=== PATIENT | male | born 1945 | race Caucasian/White ===

== ENCOUNTER 2017-12-26 12:13 | Emergency (ER) | payer OTHER, SELFPAY ==
[2017-12-26 12:15] VITALS: BP 171/65; PULSE 67; RESP 17; TEMP 36.7; O2SAT 100
[2017-12-26 12:21] VITALS: BP 171/65; PULSE 67; RESP 17; TEMP 36.7; O2SAT 100
--- NOTE | 2017-12-26 12:37 | DI.CT.S_ITS ---
PROCEDURE: CT HEAD/BRAIN WO CON INDICATIONS: dysarthria TECHNIQUE: Noncontrast 4.5 mm thick angled axial sections acquired from the foramen magnum to the vertex, with coronal and sagittal reformats. For radiation dose reduction, the following was used: automated exposure control, adjustment of mA and/or kV according to patient size. COMPARISON: [facility], MR, STROKE PROTOCOL, 06/28/2016, 13:38. [facility], CT, HEAD AND NECK ANGIO, 06/27/2016, 20:17. [facility], CT, HEAD WITHOUT CONTRAST, 06/27/2016, 19:45. FINDINGS: Image quality: Excellent. CSF spaces: Basal cisterns are patent. No extra-axial fluid collections. The ventricles are moderately dilated but symmetric in size and shape. Ventricular dilation is unchanged. Brain: No intracranial bleeds or masses. There is cerebral volume loss for age, with resultant ventricular and sulcal prominence. There are periventricular and deep white matter chronic small vessel ischemic changes. There is intracranial internal carotid artery atherosclerosis. Skull and face: Calvarium and visualized facial bones appear intact, without suspicious lesions. Sinuses: Visualized sinuses and mastoids are clear. IMPRESSION: 1. No acute intracranial abnormalities. 2. Cerebral volume loss and chronic microvascular ischemic changes. 3. Dilated cerebral ventricles may be secondary to central atrophy or normal pressure hydrocephalus. Recommend clinical correlation. Dictated by: Sudha Moreland M.D. on 12/26/2017 at 12:57 Approved by: Sudha Moreland M.D. on 12/26/2017 at 13:06
--- NOTE | 2017-12-26 12:39 | ED.NEUROSD ---
HPI - Neuro Symptoms/Deficit General Chief Complaint: Neuro Symptoms/Deficit Stated Complaint: THINKS HE IS HAVING A STROKE Time Seen by Provider: 12/26/17 12:19 Source: patient and family Mode of arrival: ambulatory Limitations: no limitations History of Present Illness HPI Narrative: Patient states that he was riding in the car when he began to feel a little bit lightheaded. He states when he got out of the car, he noticed that he was having trouble pronouncing words and that his right leg felt slightly weak. However, patient did not have any trouble walking. Son states that patient was mixing up some of his bowels incontinence. Patient states the symptoms lasted about 30 min and then began to katherine. He states that now, and he is feeling mostly better. Patient has a history of TIAs in the past and states this feels similar. His last 1 was in June of 2016, and he does not recall having a carotid Doppler or echocardiogram at that time. He does think that he has had a carotid Doppler some point in the past. Onset (ago): hour(s) (2) Last Observed Normal: 10:15 Timing confirmed by: family member Location: speech and right leg History of same: Yes Severity: mild Quality: weak and improving Relieving factors: time Exacerbating factors: none Context: sudden onset On Anticoagulants: Yes (aspirin) Associated symptoms: other (Patient states he has been dealing with a lot of anxiety, secondary to his 's being in the ICU with sepsis. Patient also states that he feels as though he has a migraine headache, as well.) Treatments Prior to Arrival: Aspirin Related Data Previous Rx's Medication Instructions Recorded cyclobenzaprine 10 mg PO Q8HP PRN #20 tab 05/01/16 hydrocodone-acetaminophen [Arnold] 1 - 2 tab PO Q6H PRN #15 tab 05/01/16 ondansetron [Zofran ODT] 4 mg SUBLINGUAL Q6HP PRN #20 odt 06/03/16 aspirin 325 mg PO QDAY #30 06/28/16 Allergies Allergy/AdvReac Type Severity Reaction Status Date / Time No Known Drug Allergies Allergy Unknown Unverified 08/29/17 12:30 oxycodone AdvReac Intermediate CONFUSION Unverified 08/29/17 12:30 Review of Systems Review of Systems All systems reviewed & are unremarkable except as noted in HPI and below Constitutional Denies chills, Denies fever(s), Denies lethargy and Reports weakness (R leg) Eyes Denies change in vision, Denies eye discharge, Denies irritation and Denies loss of vision ENT Ears, Nose, Mouth, and Throat: Denies change in voice, Denies neck pain and Denies sore throat Cardiovascular Denies chest pain, Denies irregular heart rhythm, Denies lightheadedness, Denies palpitations, Denies dyspnea, Denies dyspnea on exertion and Denies orthopnea Respiratory Denies cough, Denies dyspnea, Denies dyspnea on exertion and Denies wheezing Gastrointestinal Gastrointestinal: Denies abdominal pain, Denies change in bowel habits, Denies diarrhea, Denies nausea and Denies vomiting Genitourinary Denies hematuria, Denies flank pain, Denies urinary incontinence and Denies urinary urgency Musculoskeletal Denies neck pain Integumentary/Breasts Denies pruritus, Denies erythema, Denies rash and Denies wounds Neurologic Reports abnormal speech, Denies confusion, Denies loss of vision and Reports weakness (R leg) Psychiatric Denies anxiety, Denies confusion, Denies depression, Denies homicidal ideation and Denies suicidal ideation Endocrine Denies palpitations Hematologic/Lymphatic Denies easy bruising Allergic/Immunologic Denies wheezing Exam Initial Vital Signs Initial Vital Signs: Vital Signs Temperature 98.1 F 12/26/17 12:15 Pulse Rate 67 12/26/17 12:15 Respiratory Rate 17 12/26/17 12:15 Blood Pressure 171/65 H 12/26/17 12:15 Pulse Oximetry 100 12/26/17 12:15 Const General: cooperative and well developed Nutritional Appearance: well nourished Orientation: alert, awake, oriented x3 and not confused [facility] Head: normocephalic and atraumatic Ears: external ears normal and TM's normal bilaterally Nose: external nose normal and No nasal discharge Face and sinus: sinuses nontender, face symmetric, no sinus tenderness and No dry mucous membranes Mouth: oral mucosae normal and moist mucous membranes Teeth and gingiva: dentition normal Throat: tonsils normal and uvula midline Eyes General: appearance normal, both eyes and all related structures Eyelids: eyelids normal Conjunctivae: conjunctivae normal Sclera: sclerae normal Pupils: PERRL EOM: EOM intact bilaterally Neck Neck: normal visual inspection, trachea midline, No lymphadenopathy, No midline deformity and No JVD Lymphatic: No lymphedema Chest Chest: normal inspection of the chest Resp Effort & Inspection: normal respiratory effort, able to speak in complete sentences, no respiratory distress and no use of accessory muscles Auscultation: clear to auscultation bilaterally, no rales, no rhonchi and no wheezes Cardio Rate: regular rate Rhythm: regular rhythm Heart Sounds: no click, no gallops, no murmurs and no rubs Pulses: normal peripheral pulses GI Inspection: non-distended Palpation: soft, no hepatosplenomegaly, No guarding, No pulsatile mass and No tender Auscultation: normal bowel sounds Back/Spine/Pelvis Back: No CVA tenderness Cervical Spine: cervical ROM normal and No pain with cervical ROM Thoracic/Lumbar Spine: thoracic and lumbar spine normal to inspection Skin General: no rashes or lesions noted, No jaundice and No petechiae Neuro General: alert, oriented x3, gait normal, moves all extremities, normal light touch, pain and propioception, no focal motor deficits and CN's II-XI intact bilaterally Cognition: normal cognition Speech: speech normal Gait: normal gait Motor: muscle tone normal throughout and strength 5/5 throughout Sensory Exam: no sensory deficits noted Pupils: Normal pupillary reactivity/response: right and left Extrem General: full ROM, no clubbing, cyanosis or edema, no pedal edema and no calf tenderness Psych Appearance: well kempt Mental Status: mental status grossly normal Attitude: cooperative Thought Content: normal and suicidality Judgment: judgment good Course Hospital Course: Twelve lead EKG was performed and showed the following: Normal sinus rhythm with ventricular rate 67 beats per minute ME interval 198 milliseconds QRS duration 77 millisecond QT interval normal Aubrey normal Orders Ordered: Discontinued Medications Sodium Chloride (Normal Saline 0.9%) 1,000 mls @ 150 mls/hr IV CONT NANETTE Last Infusion: 12/26/17 14:35 Dose: 0 mls/hr Admin: 12/26/17 13:13 Dose: 150 mls/hr Vital Signs - 8 hr 12/26/17 12:15 12/26/17 12:21 12/26/17 13:11 Temperature 98.1 F 98.1 F Pulse Rate 67 67 63 Respiratory Rate 17 17 21 Blood Pressure 171/65 H Blood Pressure [Right Arm] 171/65 H 118/64 Pulse Oximetry 100 100 99 MDM - Neuro Symptoms/Deficit Lab Data Result diagrams: 12/26/17 12:20 12/26/17 12:20 Lab Results 12/26/17 12/26/17 12/26/17 Range/Units 12:20 12:20 12:20 WBC 7.0 (4.5-11.0) X10^3/uL RBC 4.43 L (4.5-5.9) X10^6/uL Hgb 12.7 L (13.5-17.5) g/dL Hct 37.2 L (41-53) % MCV 84.0 (80-100) fL MCH 28.8 (26-34) PG MCHC 34.3 (30-36) % RDW 14.2 (11.6-14.8) % Plt Count 237 (150-400) X10^3/uL Neut % (Auto) 60.1 (50-75) % Lymph % (Auto) 26.8 (25-40) % [place] % (Auto) 9.3 (3-14) % Eos % (Auto) 3.1 (2-4) % Baso % (Auto) 0.7 (0-2) % Neut # (Auto) 4200 (2529-4610) /uL Total Counted Cancelled Seg Neutrophils % Cancelled Band Neutrophils % Cancelled Lymphocytes % (Manual) Cancelled Atypical Lymphs % Cancelled Monocytes % (Manual) Cancelled Eosinophils % (Manual) Cancelled Basophils % (Manual) Cancelled Metamyelocytes % Cancelled Myelocytes % Cancelled Promyelocytes % Cancelled Blast Cells % Cancelled Neutrophils # (Manual) Cancelled Nucleated RBCs Cancelled Differential Comment Cancelled Hypersegmented Neuts Cancelled Reactive Lymphocytes Cancelled Plasma Cells Cancelled Smudge Cells Cancelled Other Cell Type Cancelled Toxic Granulation Cancelled Toxic Vacuolation Cancelled Dohle Bodies Cancelled Annie Rods Cancelled WBC Morphology Comment Cancelled Platelet Estimate Cancelled Clumped Platelets Cancelled Plt Morphology Comment Cancelled RBC Morphology Cancelled Dimorphic RBCs Cancelled Polychromasia Cancelled Hypochromasia Cancelled Poikilocytosis Cancelled Basophilic Stippling Cancelled Anisocytosis Cancelled Microcytosis Cancelled Macrocytosis Cancelled Spherocytes Cancelled Pappenheimer Bodies Cancelled Sickle Cells Cancelled Target Cells Cancelled Tear Drop Cells Cancelled Ovalocytes Cancelled Stomatocytes Cancelled Helmet Cells Cancelled Padron-[place] Bodies Cancelled [place] Rings Cancelled [place] Cells Cancelled Acanthocytes (Spur) Cancelled Rouleaux Cancelled Schistocytes Cancelled PT 10.8 (10.1-12.7) SECONDS INR 1.0 (0.9-1.3) APTT 32 (26.4-36.2) SECONDS Sodium 136 L (137-145) mmol/L Potassium 4.3 (3.4-5.1) mmol/L Chloride 99 (98-107) mmol/L Carbon Dioxide 24 (22-32) mmol/L BUN 17 (9-20) mg/dL Creatinine 0.90 (0.66-1.25) mg/dL Estimated GFR > 60.0 (>60) mL/min BUN/Creatinine Ratio 18.9 (6-22) Glucose 160 H (80-110) mg/dL Calcium 9.7 (8.4-10.2) mg/dL Total Bilirubin 0.6 (0.2-1.3) mg/dL AST 30 (17-59) IU/L ALT 25 (21-72) IU/L Alkaline Phosphatase 55 (38-126) U/L Troponin I < 0.012 (0.01-0.034) ng/mL Total Protein 7.4 (6.3-8.2) g/dL Albumin 4.4 (3.5-5.0) g/dL Globulin 3.0 (1.7-4.1) g/dL Albumin/Globulin Ratio 1.5 (1.0-2.8) Imaging Data CT scan - head: Attestation: I personally reviewed and interpreted this imaging study as follows: Radiologist's impression: FINDINGS: Image quality: Excellent. CSF spaces: Basal cisterns are patent. No extra-axial fluid collections. The ventricles are moderately dilated but symmetric in size and shape. Ventricular dilation is unchanged. Brain: No intracranial bleeds or masses. There is cerebral volume loss for age, with resultant ventricular and sulcal prominence. There are periventricular and deep white matter chronic small vessel ischemic changes. There is intracranial internal carotid artery atherosclerosis. Skull and face: Calvarium and visualized facial bones appear intact, without suspicious lesions. Sinuses: Visualized sinuses and mastoids are clear. IMPRESSION: 1. No acute intracranial abnormalities. 2. Cerebral volume loss and chronic microvascular ischemic changes. 3. Dilated cerebral ventricles may be secondary to central atrophy or normal pressure hydrocephalus. Recommend clinical correlation. Dictated by: Sudha Moreland M.D. on 12/26/2017 at 12:57 Approved by: Sudha Moreland M.D. on 12/26/2017 at 13:06 carotid US: Radiologist's impression: FINDINGS: Stenosis calculations are based on SRU (Society of Radiologists in Ultrasound) criteria. Right side: Brachial blood pressure: 118/64 mm Hg. Common carotid artery peak systolic velocity: 92 cm/sec. Internal carotid artery peak systolic velocity: 93 cm/sec. Internal carotid artery end diastolic velocity: 17 cm/sec. External carotid artery peak systolic velocity: 137 cm/sec. ICA/CCA peak systolic ratio: 1.0. Roman scale imaging description: Mild soft plaque Percent internal carotid artery stenosis: Less than 50%, improved since last study.. Vertebral artery: Flow direction is antegrade. Left side: Brachial blood pressure: 131/63 mm Hg. Common carotid artery peak systolic velocity: 86 cm/sec. Internal carotid artery peak systolic velocity: 82 cm/sec. Internal carotid artery end diastolic velocity: 14 cm/sec. External carotid artery peak systolic velocity: 1:30 cm/sec. ICA/CCA peak systolic ratio: 0.95. Roman scale imaging description: Minimal plaque Percent internal carotid artery stenosis: Less than 50%, unchanged. Vertebral artery: Flow direction is antegrade. IMPRESSION: Mild atheromatous plaque, right greater than left. Interval improvement in in degree of stenosis on the right, now less than 50%. Left ICA remains less than 50% stenotic. Dictated by: Washington Alicea M.D. on 12/26/2017 at 13:25 Approved by: Washington Alicea M.D. on 12/26/2017 at 13:28 Discharge Plan Departure Patient Disposition: Home, Self-Care Clinical Impression: Transient cerebral ischemia, Migraine Discharge Date/Time: 12/26/17 14:36 Interventions: ED Discharge Assessment Last Done: 12/26/17 14:35 Instructions: DI for Migraine, DI for Transient Ischemic Attack Activity Restrictions/Additional Instructions: Your labs, CT scan, and carotid Doppler ultrasound looks good. You do have some blockages in her carotid arteries, but not to the point that would require surgical intervention. You should continue to take the aspirin, as this will help prevent strokes in the future. You will also need to follow up with your primary provider to discuss having an echocardiogram (ultrasound of the heart) done. Prescriptions: No Action cyclobenzaprine 10 MG tablet 10 mg PO Q8HP PRNQty: 20 RF: 0 hydrocodone-acetaminophen [Arnold] 5 MG/325 MG tablet 1 - 2 tab PO Q6H PRNQty: 15 RF: 0 ondansetron [Zofran ODT] 4 MG tablet,disintegrating 4 mg Sublingual Q6HP PRNQty: 20 RF: 0 aspirin 325 MG tablet,delayed release (DR/EC) 325 mg PO QDAY Qty: 30 RF: 0 Referrals: [facility] [Provider Group] (Please call tomorrow morning to make an appointment for follow-up within the next week, to discuss having an echocardiogram done.)
[2017-12-26 12:49] LABS: Prothrombin Time 10.8 SECONDS (10.1-12.7)
[2017-12-26 12:50] LABS: Add Manual Diff / Slide Review NO; Basophils Percent Auto 0.7 % (0-2); Eosinophils Percent Auto 3.1 % (2-4); Hematocrit 37.2 % (41-53); Hemoglobin 12.7 g/dL (13.5-17.5); Lymphocytes Percent Auto 26.8 % (25-40); Mean Corpuscular HGB Conc 34.3 % (30-36); Mean Corpuscular Hemoglobin 28.8 PG (26-34); Monocytes Percent Auto 9.3 % (3-14); Neutrophils Absolute Auto 4200 /uL (3000-5900); Neutrophils Percent Auto 60.1 % (50-75); Platelet Count 237 X10^3/uL (150-400); Red Blood Cell Count 4.43 X10^6/uL (4.5-5.9); Red Cell Distribution Width 14.2 % (11.6-14.8)
[2017-12-26 12:51] LABS: PTT Partial Thromboplastin Tim 32 SECONDS (26.4-36.2)
[2017-12-26 12:56] LABS: Alanine Aminotransferase 25 IU/L (21-72); Albumin 4.4 g/dL (3.5-5.0); Albumin Globulin Ratio 1.5 (1.0-2.8); Alkaline Phosphatase 55 U/L (38-126); Aspartate Aminotransferase 30 IU/L (17-59); BUN Creatinine Ratio 18.9 (6-22); Bilirubin Total 0.6 mg/dL (0.2-1.3); Blood Urea Nitrogen 17 mg/dL (9-20); Calcium 9.7 mg/dL (8.4-10.2); Carbon Dioxide 24 mmol/L (22-32); Chloride 99 mmol/L (98-107); Estimated Glomerular Filt Rate > 60.0 mL/min (>60); Glucose 160 mg/dL (80-110); HEMOLYSIS < 15 (0-50); Potassium 4.3 mmol/L (3.4-5.1); Sodium 136 mmol/L (137-145); Total Protein 7.4 g/dL (6.3-8.2)
[2017-12-26 13:08] LABS: Troponin I < 0.012 ng/mL (0.01-0.034)
[2017-12-26 13:11] VITALS: BP 118/64; PULSE 63; RESP 21; O2SAT 99
[2017-12-26] MEDS: SODIUM CHLORIDE 0.9% 1,000 ML 150 ML IV (13:13)
[2017-12-26 14:00] VITALS: BP 131/64; PULSE 58; RESP 22; O2SAT 95
== END 2017-12-26 14:36 | disposition home or self-care (01) ==
PROVIDERS: Emergency Provider Emergency Medicine
DX: G45.9 Transient cerebral ischemic attack, unspecified (principal); G43.909 Migraine, unspecified, not intractable, without status migrainosus
CPT/HCPCS: 36591; 70450; 80053; 81003; 84484; 85025; 85610; 85730; 93005; 93010; 93880; 96360; 99284; 99285; 99291

== ENCOUNTER 2018-01-23 17:12 | Emergency (ER) | payer OTHER, SELFPAY ==
[2018-01-23 17:15] VITALS: BP 114/56; PULSE 69; RESP 18; TEMP 37.5; O2SAT 98
[2018-01-23 18:23] LABS: Bilirubin Urine UA 3+ (NEGATIVE); Glucose Urine UA TRACE g/dL (Normal); Ketones Urine UA 1+ (NEGATIVE); Leukocyte Esterase Urine UA 2+ (NEGATIVE); Nitrite Urine UA POSITIVE (Negative); Occult Blood Urine UA 3+ (Negative); Protein Urine UA 3+ (Negative)
[2018-01-23 18:41] LABS: Color Urine UA BROWN
[2018-01-23 18:42] LABS: Amorphous Sediment Urine 2+; Appearance Urine UA CLOUDY; RBC Urine >100/HPF (0-5/HPF); Squamous Epithelial Cell Urine 0-1 /HPF; WBC Urine 10-30/HPF (0-5/HPF)
[2018-01-23 18:43] LABS: Bacteria Urine Few (2-10); Culture Indicated Urine Specimen Cultured
[2018-01-23 18:44] LABS: Ictotest Urine Negative (Negative)
--- NOTE | 2018-01-23 19:06 | ED.MALEGU ---
HPI - Male Genitourinary <Nadine Vergara PA-C - Last Filed: 01/23/18 21:53> General Chief complaint: Urogenital-Male Stated complaint: blood in urine Time Seen by Provider: 01/23/18 19:06 Source: patient Mode of arrival: ambulatory Limitations: no limitations History of Present Illness HPI Narrative: This 72-year-old male comes in due to onset of gross hematuria this morning. He states that he has been feeling otherwise well. He thinks that he did scratch the inside of his penis/meatal area few days ago, and states that he has had some tingly pain over that area with urination. He also thought maybe he saw a little mucus in the urine at some point. He denies alton dysuria but thinks he has had a little bit more urinary frequency in the last couple of days. He denies any urgency. He denies any fever, flank pain, nausea, vomiting or any other new complaints on systems review. He denies any STD concerns. He has no history of kidney stones Related Data Previous Rx's Medication Instructions Recorded cyclobenzaprine 10 mg PO Q8HP PRN #20 tab 05/01/16 hydrocodone-acetaminophen [[place]] 1 - 2 tab PO Q6H PRN #15 tab 05/01/16 ondansetron [Zofran ODT] 4 mg SUBLINGUAL Q6HP PRN #20 odt 06/03/16 aspirin 325 mg PO QDAY #30 06/28/16 sulfamethoxazole-trimethoprim 1 tab PO BID 5 Days #10 tab 01/23/18 [Bactrim DS] Allergies Allergy/AdvReac Type Severity Reaction Status Date / Time No Known Drug Allergies Allergy Unknown Unverified 08/29/17 12:30 oxycodone AdvReac Intermediate CONFUSION Unverified 08/29/17 12:30 Review of Systems <Nadine Vergara PA-C - Last Filed: 01/23/18 21:53> Review of Systems All systems reviewed & are unremarkable except as noted in HPI and below Exam <Nadine Vergara PA-C - Last Filed: 01/23/18 21:53> Narrative Exam Narrative: GENERAL APPEARANCE: Patient sitting comfortably, in no distress. LUNGS: Clear to auscultation bilaterally. HEART: Rate and rhythm regular without murmur, normal S1 and S2, no S3 or S4. ABDOMEN: Soft, NT, ND, +BS x 4 quadrants, no CVAT. EXTREMITIES: No edema, no calf tenderness Initial Vital Signs Initial Vital Signs: Vital Signs Temperature 99.5 F 01/23/18 17:15 Pulse Rate 69 01/23/18 17:15 Respiratory Rate 18 01/23/18 17:15 Blood Pressure 114/56 L 01/23/18 17:15 Pulse Oximetry 98 01/23/18 17:15 <Lizzy Cazares MD - Last Filed: 01/24/18 05:08> Initial Vital Signs Initial Vital Signs: Vital Signs Temperature 99.5 F 01/23/18 17:15 Pulse Rate 69 01/23/18 17:15 Respiratory Rate 18 01/23/18 17:15 Blood Pressure 114/56 L 01/23/18 17:15 Pulse Oximetry 98 01/23/18 17:15 Course <Nadine Vergara PA-C - Last Filed: 01/23/18 21:53> Additional Information: Patient appears well today. Discussed possible further w/u including labs, imaging, however, he does have some acute urinary symptoms and appears otherwise well. He prefers to treat for UTI and f/u with his PCP next week (already has appointment). Advised repeat UA needed and to discuss further evaluation depending upon results and progress. He is agreeable and will return if any acutely worsening sx in the interim Orders Ordered: Discontinued Medications Trimethoprim/Sulfamethoxazole (Bactrim Ds) 1 tab PO NOW ONE Stop: 01/23/18 19:35 Last Admin: 01/23/18 19:53 Dose: 1 tab Vital Signs - 8 hr 01/23/18 17:15 01/23/18 20:10 Temperature 99.5 F Pulse Rate 69 78 Respiratory Rate 18 14 Blood Pressure 114/56 L Blood Pressure [Left Arm] 140/72 Pulse Oximetry 98 <Lizzy Cazares MD - Last Filed: 01/24/18 05:08> Orders Ordered: Discontinued Medications Trimethoprim/Sulfamethoxazole (Bactrim Ds) 1 tab PO NOW ONE Stop: 01/23/18 19:35 Last Admin: 01/23/18 19:53 Dose: 1 tab Vital Signs - 8 hr 01/23/18 17:15 01/23/18 20:10 Temperature 99.5 F Pulse Rate 69 78 Respiratory Rate 18 14 Blood Pressure 114/56 L Blood Pressure [Left Arm] 140/72 Pulse Oximetry 98 MDM - Male Genitourinary <Nadine Vergara PA-C - Last Filed: 01/23/18 21:53> Lab Data Lab Results 01/23/18 Range/Units 18:15 Urine Color Brown Urine Appearance Cloudy Urine pH 7.0 (4.5-8.0) Ur Specific [place] 1.020 (1.000-1.035) Urine Protein 3+ H (Negative) Urine Glucose (UA) Trace (Normal) g/dL Urine Ketones 1+ H (NEGATIVE) Urine Occult Blood 3+ H (Negative) Urine Nitrate Positive (Negative) Urine Bilirubin 3+ H (NEGATIVE) Urine Ictotest Negative (Negative) Urine Urobilinogen 2.0 H (0.2) E.U./dL Ur Leukocyte Esterase 2+ H (NEGATIVE) Urine RBC >100/hpf (0-5/HPF) Urine WBC 10-30/hpf H (0-5/HPF) Ur Squamous Epith Cells 0-1 /hpf Amorphous Sediment 2+ Urine Bacteria Few (2-10) H (None) Ur Culture Indicated? Specimen cultured Micro UA Comment Not Reportable <Lizzy Cazares MD - Last Filed: 01/24/18 05:08> Lab Data Lab Results 01/23/18 Range/Units 18:15 Urine Color Brown Urine Appearance Cloudy Urine pH 7.0 (4.5-8.0) Ur Specific [place] 1.020 (1.000-1.035) Urine Protein 3+ H (Negative) Urine Glucose (UA) Trace (Normal) g/dL Urine Ketones 1+ H (NEGATIVE) Urine Occult Blood 3+ H (Negative) Urine Nitrate Positive (Negative) Urine Bilirubin 3+ H (NEGATIVE) Urine Ictotest Negative (Negative) Urine Urobilinogen 2.0 H (0.2) E.U./dL Ur Leukocyte Esterase 2+ H (NEGATIVE) Urine RBC >100/hpf (0-5/HPF) Urine WBC 10-30/hpf H (0-5/HPF) Ur Squamous Epith Cells 0-1 /hpf Amorphous Sediment 2+ Urine Bacteria Few (2-10) H (None) Ur Culture Indicated? Specimen cultured Micro UA Comment Not Reportable Discharge Plan Departure Patient Disposition: Home Clinical Impression: Hematuria, Acute UTI Discharge Date/Time: 01/23/18 20:10 Interventions: ED Discharge Assessment Last Done: 01/23/18 20:07 Instructions: DI for Urinary Tract Infection (UTI), DI for Hematuria Activity Restrictions/Additional Instructions: We are treating you within antibiotic for urinary infection tonight based on your symptoms and urinalysis, however as we talked about you should return if you have any worsening symptoms or new symptoms such as fever, pain, or vomiting. Otherwise, please follow-up with your PCP next week and plan to repeat the urinalysis. You will need further testing if your continuing to have any blood in the urine or your symptoms have not resolved. Prescriptions: New sulfamethoxazole-trimethoprim [Bactrim DS] 800-160 mg tablet 1 tab PO BID 5 Days Qty: 10 RF: 0 No Action cyclobenzaprine 10 MG tablet 10 mg PO Q8HP PRNQty: 20 RF: 0 hydrocodone-acetaminophen [[place]] 5 MG/325 MG tablet 1 - 2 tab PO Q6H PRNQty: 15 RF: 0 ondansetron [Zofran ODT] 4 MG tablet,disintegrating 4 mg Sublingual Q6HP PRNQty: 20 RF: 0 aspirin 325 MG tablet,delayed release (DR/EC) 325 mg PO QDAY Qty: 30 RF: 0 Referrals: Ezra Strong MD [Primary Care Provider] - <Lizzy Cazares MD - Last Filed: 01/24/18 05:08> [facility] Jorgeature Attestation: I was present in the emergency department and available for consultation during this patient's evaluation and management.
--- NOTE | 2018-01-23 19:10 | PC.NURSE ---
Patient woke up with visible hematuria. Has voided 4-5 times today and states each time it looks like cranberry juice. Denies any pain, but does have a small amount of stinging with urination as if there is a cut up there. States he did catch the tip of his penis on his zipper. Denies flank pain, abdominal pain, or any recent trauma. Has hx of enlarged prostate for which he received an MRI.
[2018-01-23] MEDS: SULFA/TRIMETH 800/160 (DS) TABLET 1 TAB PO (19:53)
[2018-01-23 20:10] VITALS: BP 140/72; PULSE 78; RESP 14
== END 2018-01-23 20:10 | disposition home or self-care (01) ==
PROVIDERS: Emergency Medicine; Emergency Provider Internal Medicine; Family Provider Internal Medicine; PCP Internal Medicine
DX: N39.0 Urinary tract infection, site not specified (principal); R31.9 Hematuria, unspecified
CPT/HCPCS: 81001; 87077; 87086; 87186; 99282; 99283

== ENCOUNTER 2018-05-20 21:40 | Emergency (ER) | payer OTHER, SELFPAY ==
[2018-05-20 21:53] VITALS: BP 160/91; PULSE 100; RESP 18; TEMP 37.4; O2SAT 98
--- NOTE | 2018-05-20 21:59 | DI.CT.S_ITS ---
PROCEDURE: CT HEAD/BRAIN WO CON INDICATIONS: word finding difficuty since this morning, hx TIA's TECHNIQUE: Noncontrast 4.5 mm thick angled axial sections acquired from the foramen magnum to the vertex, with coronal and sagittal reformats. For radiation dose reduction, the following was used: automated exposure control, adjustment of mA and/or kV according to patient size. COMPARISON: None. FINDINGS: Image quality: Excellent. CSF spaces: Basal cisterns are patent. No extra-axial fluid collections. The ventricles are symmetric in size and shape. Brain: No intracranial bleeds or masses. There is cerebral volume loss for age, with resultant ventricular and sulcal prominence. There are periventricular and deep white matter chronic small vessel ischemic changes. There is intracranial internal carotid artery atherosclerosis. Skull and face: Calvarium and visualized facial bones appear intact, without suspicious lesions. Sinuses: Visualized sinuses and mastoids are clear. 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 Dictated by: Polo Cason M.D. on 05/21/2018 at 8:55 Approved by: Polo Cason M.D. on 05/21/2018 at 8:57
[2018-05-20 22:09] LABS: Add Manual Diff / Slide Review NO; Basophils Percent Auto 0.9 % (0-2); Eosinophils Percent Auto 3.7 % (2-4); Lymphocytes Percent Auto 31.2 % (25-40); Mean Corpuscular HGB Conc 34.3 % (30-36); Mean Corpuscular Hemoglobin 28.6 PG (26-34); Mean Corpuscular Volume 83.5 fL (80-100); Monocytes Percent Auto 10.7 % (3-14); Neutrophils Absolute Auto 4200 /uL (1500-7000); Neutrophils Percent Auto 53.5 % (50-75); Platelet Count 268 X10^3/uL (150-400); Red Blood Cell Count 4.55 X10^6/uL (4.5-5.9); Red Cell Distribution Width 14.6 % (11.6-14.8); White Blood Cell Count 7.8 X10^3/uL (4.5-11.0)
[2018-05-20 22:16] LABS: INR 0.9 (0.9-1.3); Prothrombin Time 10.6 SECONDS (10.1-12.7)
[2018-05-20 22:18] LABS: PTT Partial Thromboplastin Tim 30 SECONDS (26.4-36.2)
[2018-05-20 22:30] VITALS: BP 134/61; PULSE 71; RESP 17; O2SAT 98
--- NOTE | 2018-05-20 23:32 | ED.NEUROSD ---
HPI - Neuro Symptoms/Deficit General Chief Complaint: Neuro Symptoms/Deficit Stated Complaint: thinks having a stroke Time Seen by Provider: 05/20/18 23:00 Source: patient and other (Friend) Mode of arrival: ambulatory Limitations: no limitations History of Present Illness HPI Narrative: Patient presents the emergency department after having an episode of difficulty finding his words. Patient states that this has happened once before. He states the symptoms have resolved now. Records reveal that patient was seen by myself back in December for similar symptoms, at which time a carotid Doppler was performed and found to be unremarkable. The patient at that time had been advised to follow up with his primary care physician to get scheduled for an echocardiogram, and had been started on aspirin. The patient states that he never did follow-up, and is yet has not gotten his echocardiogram done. Patient denies any focal weakness; no sensory deficits. No visual changes. He states that he is completely back to normal now. No chest pain or shortness of breath. No nausea or vomiting. No recent illness, including no fever, cough, or diarrhea. No other complaints this time. On Anticoagulants: Yes (ASA) Related Data Previous Rx's Medication Instructions Recorded cyclobenzaprine 10 mg PO Q8HP PRN #20 tab 05/01/16 hydrocodone-acetaminophen [[place]] 1 - 2 tab PO Q6H PRN #15 tab 05/01/16 ondansetron [Zofran ODT] 4 mg SUBLINGUAL Q6HP PRN #20 odt 06/03/16 aspirin 325 mg PO QDAY #30 06/28/16 Allergies Allergy/AdvReac Type Severity Reaction Status Date / Time No Known Drug Allergies Allergy Unknown Unverified 08/29/17 12:30 oxycodone AdvReac Intermediate CONFUSION Unverified 08/29/17 12:30 Review of Systems Review of Systems All systems reviewed & are unremarkable except as noted in HPI and below Constitutional Denies chills, Denies fever(s), Denies lethargy and Denies weakness Eyes Denies change in vision, Denies eye discharge, Denies irritation and Denies loss of vision ENT Ears, Nose, Mouth, and Throat: Denies change in voice, Denies neck pain and Denies sore throat Cardiovascular Denies chest pain, Denies irregular heart rhythm, Denies lightheadedness, Denies palpitations, Denies dyspnea, Denies dyspnea on exertion and Denies orthopnea Respiratory Denies cough, Denies dyspnea, Denies dyspnea on exertion and Denies wheezing Gastrointestinal Gastrointestinal: Denies abdominal pain, Denies change in bowel habits, Denies diarrhea, Denies nausea and Denies vomiting Genitourinary Denies hematuria, Denies flank pain, Denies urinary incontinence and Denies urinary urgency Musculoskeletal Denies neck pain Integumentary/Breasts Denies pruritus, Denies erythema, Denies rash and Denies wounds Neurologic Denies confusion, Denies loss of vision and Denies weakness Comments: Aphasia Psychiatric Denies anxiety, Denies confusion, Denies depression, Denies homicidal ideation and Denies suicidal ideation Endocrine Denies palpitations Hematologic/Lymphatic Denies easy bruising Allergic/Immunologic Denies wheezing COUNTS INCLUDE 234 BEDS AT THE [facility] Medical History Arthritis of knee, right (Chronic) Back pain with right-sided sciatica (Chronic) Diabetes (Chronic) TIA (transient ischemic attack) (Resolved) Surgical History S/P total knee arthroplasty (Resolved 02/17/15) Social History Smoking Status: Former smoker Exam Initial Vital Signs Initial Vital Signs: Vital Signs Temperature 99.3 F 05/20/18 21:53 Pulse Rate 100 H 05/20/18 21:53 Respiratory Rate 18 05/20/18 21:53 Blood Pressure 160/91 H 05/20/18 21:53 Pulse Oximetry 98 05/20/18 21:53 Const General: cooperative and well developed Nutritional Appearance: well nourished Orientation: alert, awake, oriented x3 and not confused [facility] Head: normocephalic and atraumatic Ears: external ears normal Nose: external nose normal and No nasal discharge Face and sinus: face symmetric and No dry mucous membranes Mouth: oral mucosae normal and moist mucous membranes Teeth and gingiva: dentition normal Eyes General: appearance normal, both eyes and all related structures Eyelids: eyelids normal Conjunctivae: conjunctivae normal Sclera: sclerae normal Pupils: PERRL EOM: EOM intact bilaterally Neck Neck: normal visual inspection, trachea midline, No lymphadenopathy, No midline deformity and No JVD Lymphatic: No lymphedema Chest Chest: normal inspection of the chest Resp Effort & Inspection: normal respiratory effort, able to speak in complete sentences, no respiratory distress and no use of accessory muscles Auscultation: clear to auscultation bilaterally, no rales, no rhonchi and no wheezes Cardio Rate: regular rate Rhythm: regular rhythm Heart Sounds: no click, no gallops, no murmurs and no rubs Pulses: normal peripheral pulses GI Inspection: non-distended Palpation: soft, no hepatosplenomegaly, No guarding, No pulsatile mass and No tender Auscultation: normal bowel sounds Back/Spine/Pelvis Back: No CVA tenderness Cervical Spine: cervical ROM normal and No pain with cervical ROM Thoracic/Lumbar Spine: thoracic and lumbar spine normal to inspection Skin General: no rashes or lesions noted, No jaundice and No petechiae Neuro General: alert, oriented x3, gait normal and no focal motor deficits Speech: speech normal Extrem General: full ROM, no clubbing, cyanosis or edema, no pedal edema and no calf tenderness Psych Appearance: well kempt Mental Status: mental status grossly normal Attitude: cooperative Thought Content: normal and suicidality Judgment: judgment good Course Course Narrative: Patient was worked up with labs and CT scan of the brain, which was unremarkable for any acute pathology. I have discussed with the patient that as we discussed before, he is at risk for having a larger, more permanent and devastating CVA, and that the TIAs are a warning sign for this. It has been several months since the patient's last episode, and patient has neglected to follow up as he was instructed to do in the presence of his son last time. I have advised the patient in the presence of his friend once again that is very important that he follow up to have echocardiogram done and to see his primary doctor to determine any further intervention or follow-up. At this point in time, the patient's symptoms have completely resolved, and he has already had a carotid ultrasound. Patient states that he will followup this time. We have discussed the usual indications for return. Orders Ordered: ED Orders 05/20/18 21:59 CT head/brain wo con Stat 05/20/18 22:01 Complete Blood Count AUTO DIFF Stat Partial Thromboplastin Time Stat Prothrombin Time INR Stat 05/20/18 22:22 EKG-12 Lead Stat Vital Signs - 8 hr 05/20/18 21:53 05/20/18 22:30 Temperature 99.3 F Pulse Rate 100 H 71 Respiratory Rate 18 17 Blood Pressure 160/91 H Blood Pressure [Left Arm] 134/61 Pulse Oximetry 98 98 MDM - Neuro Symptoms/Deficit Medical Records Attestation: I reviewed the patient's medical records. Lab Data Attestation: I reviewed the patient's lab results. Result diagrams: 05/20/18 22: Lab Results 05/20/18 05/20/18 Range/Units 22: 22:01 WBC 7.8 (4.5-11.0) X10^3/uL RBC 4.55 (4.5-5.9) X10^6/uL Hgb 13.0 L (13.5-17.5) g/dL Hct 38.0 L (41-53) % MCV 83.5 (80-100) fL MCH 28.6 (26-34) PG MCHC 34.3 (30-36) % RDW 14.6 (11.6-14.8) % Plt Count 268 (150-400) X10^3/uL Neut % (Auto) 53.5 (50-75) % Lymph % (Auto) 31.2 (25-40) % [place] % (Auto) 10.7 (3-14) % Eos % (Auto) 3.7 (2-4) % Baso % (Auto) 0.9 (0-2) % Neut # (Auto) 4200 (0801-3021) /uL PT 10.6 (10.1-12.7) SECONDS INR 0.9 (0.9-1.3) APTT 30 D (26.4-36.2) SECONDS Point of Care Testing Glucose POC [address] scan - head: Attestation: I personally reviewed and interpreted this imaging study as follows: My impression: No acute disease Radiologist's impression: PROCEDURE: CT HEAD/BRAIN WO CON INDICATIONS: word finding difficuty since this morning, hx TIA's TECHNIQUE: Noncontrast 4.5 mm thick angled axial sections acquired from the foramen magnum to the vertex, with coronal and sagittal reformats. For radiation dose reduction, the following was used: automated exposure control, adjustment of mA and/or kV according to patient size. COMPARISON: None. FINDINGS: Image quality: Excellent. CSF spaces: Basal cisterns are patent. No extra-axial fluid collections. The ventricles are symmetric in size and shape. Brain: No intracranial bleeds or masses. There is cerebral volume loss for age, with resultant ventricular and sulcal prominence. There are periventricular and deep white matter chronic small vessel ischemic changes. There is intracranial internal carotid artery atherosclerosis. Skull and face: Calvarium and visualized facial bones appear intact, without suspicious lesions. Sinuses: Visualized sinuses and mastoids are clear. 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 Dictated by: Polo Cason M.D. on 05/21/2018 at 8:55 Approved by: Polo Cason M.D. on 05/21/2018 at 8:57 ECG Data Attestation: I personally reviewed and interpreted this ECG as follows: (See below) Interpretation: Twelve lead EKG performed May 20, 2018 at 10:26 p.m., as follows: Regular ventricular rhythm with a rate of 81 beats per minute SC interval 181 millisecond QRS duration 77 milliseconds QTC interval 380 milliseconds [place] normal Nonspecific ST T wave changes In summary, normal sinus rhythm, occasional ectopy, no STEMI; borderline EKG as interpreted by ED MD. Discharge Plan Departure Patient Disposition: Home Clinical Impression: Transient cerebral ischemia Discharge Date/Time: 05/21/18 00:01 Interventions: ED Discharge Assessment Last Done: 05/21/18 00:02 Instructions: DI for Transient Ischemic Attack Activity Restrictions/Additional Instructions: Your CT scan shows no evidence of an acute stroke today. You had a carotid ultrasound done in December, which was unremarkable. At that time, you were instructed to see your primary doctor to discuss having an echocardiogram (heart ultrasound) done. As this has not been addressed, it is very important that you make an appointment with your primary doctor as previously had advised, to schedule this test. Otherwise, you should continue your aspirin. Prescriptions: No Action cyclobenzaprine 10 MG tablet 10 mg PO Q8HP PRNQty: 20 RF: 0 hydrocodone-acetaminophen [[place]] 5 MG/325 MG tablet 1 - 2 tab PO Q6H PRNQty: 15 RF: 0 ondansetron [Zofran ODT] 4 MG tablet,disintegrating 4 mg Sublingual Q6HP PRNQty: 20 RF: 0 aspirin 325 MG tablet,delayed release (DR/EC) 325 mg PO QDAY Qty: 30 RF: 0 Referrals: Ezra tSrong MD [Primary Care Provider] -
[2018-05-20 23:38] VITALS: BP 129/68; PULSE 73; RESP 23; O2SAT 95
--- NOTE | 2018-05-26 20:02 | ED_ITS ---
HPI - Neuro Symptoms/Deficit General Chief Complaint: Neuro Symptoms/Deficit Stated Complaint: thinks having a stroke Time Seen by Provider: 05/20/18 23:00 Source: patient and other (Friend) Mode of arrival: ambulatory Limitations: no limitations History of Present Illness HPI Narrative: Patient presents the emergency department after having an episode of difficulty finding his words. Patient states that this has happened once before. He states the symptoms have resolved now. Records reveal that patient was seen by myself back in December for similar symptoms, at which time a carotid Doppler was performed and found to be unremarkable. The patient at that time had been advised to follow up with his primary care physician to get scheduled for an echocardiogram, and had been started on aspirin. The patient states that he never did follow-up, and is yet has not gotten his echocardiogram done. Patient denies any focal weakness; no sensory deficits. No visual changes. He states that he is completely back to normal now. No chest pain or shortness of breath. No nausea or vomiting. No recent illness, including no fever, cough, or diarrhea. No other complaints this time. On Anticoagulants: Yes (ASA) Related Data Previous Rx's Medication Instructions Recorded cyclobenzaprine 10 mg PO Q8HP PRN #20 tab 05/01/16 hydrocodone-acetaminophen [[place]] 1 - 2 tab PO Q6H PRN #15 tab 05/01/16 ondansetron [Zofran ODT] 4 mg SUBLINGUAL Q6HP PRN #20 odt 06/03/16 aspirin 325 mg PO QDAY #30 06/28/16 Allergies Allergy/AdvReac Type Severity Reaction Status Date / Time No Known Drug Allergies Allergy Unknown Unverified 08/29/17 12:30 oxycodone AdvReac Intermediate CONFUSION Unverified 08/29/17 12:30 Review of Systems Review of Systems All systems reviewed & are unremarkable except as noted in HPI and below Constitutional Denies chills, Denies fever(s), Denies lethargy and Denies weakness Eyes Denies change in vision, Denies eye discharge, Denies irritation and Denies loss of vision ENT Ears, Nose, Mouth, and Throat: Denies change in voice, Denies neck pain and Denies sore throat Cardiovascular Denies chest pain, Denies irregular heart rhythm, Denies lightheadedness, Denies palpitations, Denies dyspnea, Denies dyspnea on exertion and Denies orthopnea Respiratory Denies cough, Denies dyspnea, Denies dyspnea on exertion and Denies wheezing Gastrointestinal Gastrointestinal: Denies abdominal pain, Denies change in bowel habits, Denies diarrhea, Denies nausea and Denies vomiting Genitourinary Denies hematuria, Denies flank pain, Denies urinary incontinence and Denies urinary urgency Musculoskeletal Denies neck pain Integumentary/Breasts Denies pruritus, Denies erythema, Denies rash and Denies wounds Neurologic Denies confusion, Denies loss of vision and Denies weakness Comments: Aphasia Psychiatric Denies anxiety, Denies confusion, Denies depression, Denies homicidal ideation and Denies suicidal ideation Endocrine Denies palpitations Hematologic/Lymphatic Denies easy bruising Allergic/Immunologic Denies wheezing [facility] Medical History Arthritis of knee, right (Chronic) Back pain with right-sided sciatica (Chronic) Diabetes (Chronic) TIA (transient ischemic attack) (Resolved) Surgical History S/P total knee arthroplasty (Resolved 02/17/15) Social History Smoking Status: Former smoker Exam Initial Vital Signs Initial Vital Signs: Vital Signs Temperature 99.3 F 05/20/18 21:53 Pulse Rate 100 H 05/20/18 21:53 Respiratory Rate 18 05/20/18 21:53 Blood Pressure 160/91 H 05/20/18 21:53 Pulse Oximetry 98 05/20/18 21:53 Const General: cooperative and well developed Nutritional Appearance: well nourished Orientation: alert, awake, oriented x3 and not confused [facility] Head: normocephalic and atraumatic Ears: external ears normal Nose: external nose normal and No nasal discharge Face and sinus: face symmetric and No dry mucous membranes Mouth: oral mucosae normal and moist mucous membranes Teeth and gingiva: dentition normal Eyes General: appearance normal, both eyes and all related structures Eyelids: eyelids normal Conjunctivae: conjunctivae normal Sclera: sclerae normal Pupils: PERRL EOM: EOM intact bilaterally Neck Neck: normal visual inspection, trachea midline, No lymphadenopathy, No midline deformity and No JVD Lymphatic: No lymphedema Chest Chest: normal inspection of the chest Resp Effort & Inspection: normal respiratory effort, able to speak in complete sentences, no respiratory distress and no use of accessory muscles Auscultation: clear to auscultation bilaterally, no rales, no rhonchi and no wheezes Cardio Rate: regular rate Rhythm: regular rhythm Heart Sounds: no click, no gallops, no murmurs and no rubs Pulses: normal peripheral pulses GI Inspection: non-distended Palpation: soft, no hepatosplenomegaly, No guarding, No pulsatile mass and No tender Auscultation: normal bowel sounds Back/Spine/Pelvis Back: No CVA tenderness Cervical Spine: cervical ROM normal and No pain with cervical ROM Thoracic/Lumbar Spine: thoracic and lumbar spine normal to inspection Skin General: no rashes or lesions noted, No jaundice and No petechiae Neuro General: alert, oriented x3, gait normal and no focal motor deficits Speech: speech normal Extrem General: full ROM, no clubbing, cyanosis or edema, no pedal edema and no calf tenderness Psych Appearance: well kempt Mental Status: mental status grossly normal Attitude: cooperative Thought Content: normal and suicidality Judgment: judgment good Course Course Narrative: Patient was worked up with labs and CT scan of the brain, which was unremarkable for any acute pathology. I have discussed with the patient that as we discussed before, he is at risk for having a larger, more permanent and devastating CVA, and that the TIAs are a warning sign for this. It has been several months since the patient's last episode, and patient has neglected to follow up as he was instructed to do in the presence of his son last time. I have advised the patient in the presence of his friend once again that is very important that he follow up to have echocardiogram done and to see his primary doctor to determine any further intervention or follow-up. At this point in time, the patient's symptoms have completely resolved, and he has already had a carotid ultrasound. Patient states that he will followup this time. We have discussed the usual indications for return. Orders Ordered: ED Orders 05/20/18 21:59 CT head/brain wo con Stat 05/20/18 22:01 Complete Blood Count AUTO DIFF Stat Partial Thromboplastin Time Stat Prothrombin Time INR Stat 05/20/18 22:22 EKG-12 Lead Stat Vital Signs - 8 hr 05/20/18 21:53 05/20/18 22:30 Temperature 99.3 F Pulse Rate 100 H 71 Respiratory Rate 18 17 Blood Pressure 160/91 H Blood Pressure [Left Arm] 134/61 Pulse Oximetry 98 98 MDM - Neuro Symptoms/Deficit Medical Records Attestation: I reviewed the patient's medical records. Lab Data Attestation: I reviewed the patient's lab results. Result diagrams: 05/20/18 22: Lab Results 05/20/18 05/20/18 Range/Units 22: 22:01 WBC 7.8 (4.5-11.0) X10^3/uL RBC 4.55 (4.5-5.9) X10^6/uL Hgb 13.0 L (13.5-17.5) g/dL Hct 38.0 L (41-53) % MCV 83.5 (80-100) fL MCH 28.6 (26-34) PG MCHC 34.3 (30-36) % RDW 14.6 (11.6-14.8) % Plt Count 268 (150-400) X10^3/uL Neut % (Auto) 53.5 (50-75) % Lymph % (Auto) 31.2 (25-40) % [place] % (Auto) 10.7 (3-14) % Eos % (Auto) 3.7 (2-4) % Baso % (Auto) 0.9 (0-2) % Neut # (Auto) 4200 (0812-6742) /uL PT 10.6 (10.1-12.7) SECONDS INR 0.9 (0.9-1.3) APTT 30 D (26.4-36.2) SECONDS Point of Care Testing Glucose POC [address] scan - head: Attestation: I personally reviewed and interpreted this imaging study as follows: My impression: No acute disease Radiologist's impression: PROCEDURE: CT HEAD/BRAIN WO CON INDICATIONS: word finding difficuty since this morning, hx TIA's TECHNIQUE: Noncontrast 4.5 mm thick angled axial sections acquired from the foramen magnum to the vertex, with coronal and sagittal reformats. For radiation dose reduction, the following was used: automated exposure control, adjustment of mA and/or kV according to patient size. COMPARISON: None. FINDINGS: Image quality: Excellent. CSF spaces: Basal cisterns are patent. No extra-axial fluid collections. The ventricles are symmetric in size and shape. Brain: No intracranial bleeds or masses. There is cerebral volume loss for age , with resultant ventricular and sulcal prominence. There are periventricular and deep white matter chronic small vessel ischemic changes. There is intracranial internal carotid artery atherosclerosis. Skull and face: Calvarium and visualized facial bones appear intact, without suspicious lesions. Sinuses: Visualized sinuses and mastoids are clear. 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 Dictated by: Polo Cason M.D. on 05/21/2018 at 8:55 Approved by: Polo Cason M.D. on 05/21/2018 at 8:57 ECG Data Attestation: I personally reviewed and interpreted this ECG as follows: (See below) Interpretation: Twelve lead EKG performed May 20, 2018 at 10:26 p.m., as follows: Regular ventricular rhythm with a rate of 81 beats per minute AL interval 181 millisecond QRS duration 77 milliseconds QTC interval 380 milliseconds [place] normal Nonspecific ST T wave changes In summary, normal sinus rhythm, occasional ectopy, no STEMI; borderline EKG as interpreted by ED MD. Discharge Plan Departure Patient Disposition: Home Clinical Impression: Transient cerebral ischemia Discharge Date/Time: 05/21/18 00:01 Interventions: ED Discharge Assessment Last Done: 05/21/18 00:02 Instructions: DI for Transient Ischemic Attack Activity Restrictions/Additional Instructions: Your CT scan shows no evidence of an acute stroke today. You had a carotid ultrasound done in December, which was unremarkable. At that time, you were instructed to see your primary doctor to discuss having an echocardiogram ( heart ultrasound) done. As this has not been addressed, it is very important that you make an appointment with your primary doctor as previously had advised , to schedule this test. Otherwise, you should continue your aspirin. Prescriptions: No Action cyclobenzaprine 10 MG tablet 10 mg PO Q8HP PRNQty: 20 RF: 0 hydrocodone-acetaminophen [[place]] 5 MG/325 MG tablet 1 - 2 tab PO Q6H PRNQty: 15 RF: 0 ondansetron [Zofran ODT] 4 MG tablet,disintegrating 4 mg Sublingual Q6HP PRNQty: 20 RF: 0 aspirin 325 MG tablet,delayed release (DR/EC) 325 mg PO QDAY Qty: 30 RF: 0 Referrals: Ezra Strong MD [Primary Care Provider] -
== END 2018-05-21 00:01 | disposition home or self-care (01) ==
PROVIDERS: Emergency Provider Emergency Medicine; Family Provider Internal Medicine; PCP Internal Medicine
DX: G45.9 Transient cerebral ischemic attack, unspecified (principal)
CPT/HCPCS: 36591; 70450; 82962; 85025; 85610; 85730; 93005; 99283; 99285; 99291

== ENCOUNTER → 2018-06-18 12:57 | Outpatient (CLI) | payer OTHER, SELFPAY ==
--- NOTE | 2018-06-18 | DI.ECHO.S_ITS ---
[place] [facility] +---------+ : : [address] : [address] : : : : [id number] : : : : Phone: [phone]+ Echocardiogram Report + + :Name: DONOVAN VENTURA Study Date: 06/18/2018 Height: 66 in : :[facility] Exam Location: [facility] Weight: 210 lb : : Gender: Male BSA: 2.0 m2 : :: 1945 Age: 73 yrs BP: 120/64 mmHg: :Reason For Study: CAD : :Ordering Physician: Dr. Munguia : :Tae Performed By: Criss Coronel : :Referring: KATARINA MCNAMARA : + + Interpretation Summary The left ventricle is normal in size. Left ventricular systolic function is normal without focal wall motion abnormalities. The ejection fraction is estimated to be 60-65%. Diastolic parameters suggest probable normal left ventricular diastolic function and normal filling pressures. The right ventricle is normal in size and function. Pulmonary artery pressures cannot be estimated because of the lack of a measurable TR jet velocity. Both atria are normal in size. There is no significant valvular heart disease. The aortic root is normal size. No significant changes since prior study. Procedure: A two-dimensional transthoracic echocardiogram with color flow and Doppler was performed. The study quality was technically adequate. Comparison is made with the echocardiogram of 06/28/2016. The patient was in normal sinus rhythm during the exam. Left Ventricle: The left ventricle is normal in size. Left ventricular wall thickness is mildly increased. Left ventricular systolic function is normal without focal wall motion abnormalities. The ejection fraction is estimated to be 60-65%. Diastolic parameters suggest probable normal left ventricular diastolic function and normal filling pressures. Right Ventricle: The right ventricle is normal in size and function. Atria: Both atria are normal in size. The interatrial septum is intact with no evidence for an atrial septal defect. Mitral Valve: The mitral valve leaflets appear borderline thickened, but open well. There is trace mitral regurgitation. Aortic Valve: The aortic valve is trileaflet. The aortic valve is mildly calcified. The peak aortic velocity is 2.2 m/sec. The aortic valve mean gradient is 10 mmHg. There is trace aortic regurgitation. Tricuspid Valve: The tricuspid valve is normal in structure and function. There is a trace or physiologic amount of tricuspid regurgitation. Pulmonary artery pressures cannot be estimated because of the lack of a measurable TR jet velocity. Pulmonic Valve: The pulmonic valve is normal in structure and function. There is a trace or physiologic amount of pulmonic regurgitation. There is no significant valvular heart disease. Great Vessels: The aortic root is normal size. The ascending aorta is normal in size. The IVC is of normal diameter and collapses greater than 50% with a sniff. This suggests a low right atrial pressure of 3 mm Hg. Pericardium/ Pleura There is no pericardial effusion. There is no pleural effusion. MMode/2D Measurements & Calculations LVIDd: 5.1 cm LVOT diam: 2.1 cm LVIDs: 3.3 cm Ao root diam: 3.0 cm FS: 36.1 % asc Aorta Diam: 3.5 cm IVSd: 1.1 cm LVPWd: 1.6 cm LV araujo. diameter/BSA (cm/m^2): 2.5 LV sys. diameter/BSA (cm/m^2): 1.6 LA A2 area: 17.6 cm2 RA long axis: 4.7 cm LA A4 area: 20.2 cm2 RA area: 12.5 cm2 LA length (vol): 5.0 cm RA vol: 28.0 ml LA vol: 60.4 ml RA : 13.7 ml/m2 LA vol index: 29.6 ml/m2 TAPSE: 3.0 cm Doppler Measurements & Calculations Ao V2 max: 225.5 cm/sec LVOT Max Rhett: 105.8 cm/sec Ao V2 mean: 152.2 cm/sec LV V1 max P.5 mmHg Ao max P.6 mmHg LV V1 VTI: 21.9 cm Ao mean P.1 mmHg JAYESH(I,D): 1.4 cm2 Ao V2 VTI: 54.0 cm JAYESH(V,D): 1.7 cm2 sev ratio: 0.40 JAYESH indexed to BSA (cm^2/m^2): 0.70 MV E max rhett: 74.8 cm/sec PA V2 max: 81.7 cm/sec MV A max rhett: 66.2 cm/sec PA V2 mean: 53.3 cm/sec MV E/A: 1.1 PA mean P.3 mmHg Med Peak E' Rhett: 5.7 cm/sec PA pr(Accel): 15.8 mmHg E/E' med: 13.2 Lat Peak E' Rhett: 8.8 cm/sec E/E' lat: 8.5 E/e' average: 10.8 MV dec time: 0.16 sec SV([facility]): 76.9 ml Reading Physician:04:35 PM
== END ==
PROVIDERS: Family Provider Internal Medicine; PCP Internal Medicine; Visit Provider Internal Medicine
DX: I25.10 Atherosclerotic heart disease of native coronary artery without angina pectoris (principal)
CPT/HCPCS: 93306